=== PATIENT | female | born 1950 | race Caucasian/White ===

== ENCOUNTER → 2020-02-10 | Outpatient (CLI) | payer MEDICARE ==
--- NOTE | 2020-02-10 16:48 | Diagnostic Imaging Report ---
CT Lung Screening INDICATION:80 pack-year smoking history TECHNIQUE: Noncontrast, low-dose CT imaging performed according to the lung cancer screening protocol. Auto Exposure Controls were utilize during the CT exam to meet ALARA standards for radiation dose reduction. COMPARISON:None FINDINGS:There are no prior studies available for comparison. There is an 8.4 x 8.4 cm parenchymal opacity in the superior segment of the right lower lobe. (Image 122 of 204). This finding does not have aggressive appearance and I suspect it is a benign process. There is no other parenchymal lung mass identified. There are mild emphysematous changes involving both lungs. There is no evidence for failure, pneumonia or for pleural effusion to suggest an acute cardiopulmonary abnormality. The heart size is within normal limits. Coronary calcifications are evident. The aorta is not abnormally dilated. There is no obvious mediastinal or hilar adenopathy. The thyroid gland was not visualized in its entirety. Where visualized there is no abnormality identified. There is no definite breast mass identified. The sections through the upper abdomen failed to show any sign of an acute abnormality. The bone windows are unremarkable for a fracture or for destructive lesion. IMPRESSION: 1. The parenchymal density in the right lung is most likely a benign process. Even so, a short term (3 month) followup CT chest exam would be recommended for further study. 2. There is no parenchymal lung nodule identified. 3. There is no sign of an acute cardiopulmonary abnormality. 4. The heart is not enlarged but there are coronary calcifications evident. LUNG-RADS CATEGORY:4 MODIFIER: OTHER SIGNIFICANT FINDINGS: Dictated by: Dictated on workstation # [id number]
== END ==
LOC: RAD 14:45
PROVIDERS: ATTEND Nurse Practitioner
DX: Z12.2 Encounter for screening for malignant neoplasm of respiratory organs (principal); I25.10 Atherosclerotic heart disease of native coronary artery without angina pectoris; J98.4 Other disorders of lung; F17.210 Nicotine dependence, cigarettes, uncomplicated

== ENCOUNTER → 2020-05-06 | Outpatient (CLI) | payer MEDICARE ==
[~2020-05-06] MED LIST: CATHETER FLUSH 10 ML SYR IV PRN; HOLD METFORMIN - RECEIVED CONTRAST 20 ML VIAL IV SCH; IOHEXOL 350 MG/ML 100 ML (OMNIPAQUE 350) VIAL IV ONE; NS 100 ML (IVPB) BAG IV ONE
[2020-05-06 07:17] LABS: ALBUMIN 4.1 GM/DL (3.2-4.5)
[2020-05-06 07:18] LABS: CHLORIDE 108 MMOL/L (98-107); POTASSIUM 4.3 MMOL/L (3.6-5.0); SODIUM 140 MMOL/L (135-145)
[2020-05-06 07:19] LABS: CALCIUM 9.5 MG/DL (8.5-10.1)
[2020-05-06 07:20] LABS: GLUCOSE 117 MG/DL (70-105); TOTAL PROTEIN 7.1 GM/DL (6.4-8.2)
[2020-05-06 07:21] LABS: CARBON DIOXIDE 22 MMOL/L (21-32)
[2020-05-06 07:22] LABS: BILIRUBIN,TOTAL 0.4 MG/DL (0.1-1.0)
[2020-05-06 07:23] LABS: ALKALINE PHOSPHATASE 108 U/L (40-136)
[2020-05-06 07:24] LABS: CREATININE SERUM 0.85 MG/DL (0.60-1.30); GFR ESTIMATED > 60
[2020-05-06 07:25] LABS: BUN/CREATININE RATIO 15
[2020-05-06 07:27] LABS: ALANINE AMINOTRANSFERASE 22 U/L (0-55)
--- NOTE | 2020-05-06 09:24 | Diagnostic Imaging Report ---
PROCEDURE: CT chest with contrast only. TECHNIQUE: Multiple contiguous axial images were obtained through the chest after administration of intravenous contrast. Auto Exposure Controls were utilized during the CT exam to meet ALARA standards for radiation dose reduction. INDICATION: Abnormal CT lung screening, pulmonary nodule. COMPARISON: 02/10/2020 FINDINGS: No pathologically enlarged lymph nodes within the chest. Mild scattered vascular calcifications. No aneurysmal dilatation of the thoracic aorta. The heart is within normal limits in size. No pericardial effusion. No pleural effusion. No pneumothorax. Mild background emphysematous changes again seen. 0.8 x 0.8 cm sub-solid pulmonary nodule within the superior segment of the right lower lobe is again identified and stable, series 3, image 71. Calcified granuloma within the right lower lobe. Additional tiny sub-zero 0.3 cm pulmonary nodules are identified within the bilateral upper lobes, similar to the prior examination. No new pulmonary nodule. The right upper lobe bronchus appears to be arising directly from the trachea. The partially visualized upper abdomen is unremarkable. No acute osseous abnormality. IMPRESSION: Stable 0.8 cm sub-solid right lower lobe pulmonary nodule. As this has been stable for 3 months at this time, this is now a Lung-RADS 2 nodule. Continued annual screening with low-dose CT of the chest is recommended in 12 months. No new pulmonary nodules. Mild background emphysematous changes. Lung RADS category 2: Benign appearance or behavior FOLLOW-UP: Continued annual screening with low-dose CT of the chest in 12 months. Dictated by: Dictated on workstation # [id number]
== END ==
LOC: RAD 07:45
PROVIDERS: ATTEND Nurse Practitioner
DX: R91.1 Solitary pulmonary nodule (principal)
CPT/HCPCS: 36415; 71260; 80053

== ENCOUNTER → 2020-05-19 | Outpatient (CLI) | payer MEDICARE ==
[~2020-05-19] MED LIST changes: -CATHETER FLUSH 10 ML SYR IV PRN; -HOLD METFORMIN - RECEIVED CONTRAST 20 ML VIAL IV SCH; -IOHEXOL 350 MG/ML 100 ML (OMNIPAQUE 350) VIAL IV ONE; -NS 100 ML (IVPB) BAG IV ONE; +RT-ALBUTEROL SULF 2.5 MG/3 ML PRE-MIX VIAL INH ONE
== END ==
LOC: RT 15:30
PROVIDERS: ATTEND Nurse Practitioner Family
DX: Z13.83 Encounter for screening for respiratory disorder NEC (principal); R06.00 Dyspnea, unspecified
CPT/HCPCS: 94060; 94726; 94729

== ENCOUNTER → 2021-05-26 | Outpatient (CLI) | payer MEDICARE, OTHER ==
--- NOTE | 2021-05-26 11:37 | Diagnostic Imaging Report ---
CT Lung Screening INDICATION: Screening for lung cancer, 61-frfr-alsy history of smoking, quit smoking 2 years prior. TECHNIQUE: Noncontrast, low-dose CT imaging performed according to the lung cancer screening protocol. Auto Exposure Controls were utilize during the CT exam to meet ALARA standards for radiation dose reduction. COMPARISON:05/06/2020 and 02/10/2020 FINDINGS: No significant adenopathy within the chest. Mild scattered vascular calcifications. No aneurysmal dilatation of the thoracic aorta. The heart is within normal limits in size. No pericardial effusion. No pleural effusion. The trachea is patent. No pneumothorax. Mild biapical pleural parenchymal scarring. Mild background emphysematous changes are again identified. Scarring and/or atelectasis is again identified within the lingula. Calcified granuloma within the left lower lobe is present. A 0.8 x 0.6 cm right lower lobe pulmonary nodule is again identified and unchanged since January 2020. A 1 x 1 cm groundglass opacity within the posterior aspect of the right lower lobe is again identified and unchanged from the prior exams. Calcified granuloma within the right lower lobe. Stable 5 mm right middle lobe pulmonary nodule. No new suspicious pulmonary nodule or mass. The minimally visualized upper abdomen is unremarkable. Scattered osseous degenerative changes without acute osseous abnormality. IMPRESSION: Stable subcentimeter bilateral pulmonary nodules, including a dominant 0.7 cm right lower lobe pulmonary nodule. No new pulmonary nodule. Mild background emphysematous changes are again identified. Additional stable findings as above. LUNG-RADS CATEGORY:2: Benign appearance or behavior MODIFIER: None Follow-up: Continued annual low-dose CT of the chest in 12 months. Dictated by: Dictated on workstation # [id number]
== END ==
LOC: RAD 08:15
PROVIDERS: ATTEND Nurse Practitioner
DX: Z12.2 Encounter for screening for malignant neoplasm of respiratory organs (principal); J43.9 Emphysema, unspecified; R91.8 Other nonspecific abnormal finding of lung field; Z87.891 Personal history of nicotine dependence
CPT/HCPCS: 71271

== ENCOUNTER → 2021-06-06 | Outpatient (CLI) | payer MEDICARE, OTHER | LOC: RT 10:45 | PROVIDERS: ATTEND Internal Medicine Critical Care Medicine | DX: J44.9 Chronic obstructive pulmonary disease, unspecified (principal); R91.1 Solitary pulmonary nodule; Z87.891 Personal history of nicotine dependence | CPT/HCPCS: 94060; 94726; 94729 ==